=== PATIENT | male | born 1965 | race Caucasian/White ===

== ENCOUNTER 2016-08-11 19:23 | Emergency (ER) | payer OTHER ==
[~2016-08-11] VITALS: Ht 185.4 cm; Wt 145.4 kg
[~2016-08-11 19:23] MED LIST: AMMO385C5 TP; ASPI325T32 PO; CICL34.62 TP; CYCL10TA9 PO; FLUT16SP NS; GABA-502 PO; HYDR-4003 PO; KTC2C15 TP; LORA10TA7 PO; METF500T4 PO; VALS1TAB5 PO
[2016-08-11 19:37] VITALS: BP 134/80; PULSE 79; RESP 18; O2SAT 98
--- NOTE | 2016-08-11 19:48 | ED.REPORT ---
HPI-Headache Date of Service August 11, 2016 ED Provider: John Duke MD The patient is a 50 year old male with history of diabetes mellitus and hypertension, who was sent to the emergency department from urgent care for a headache. The patient has been sick with sinus congestion, fever, and chills, over the last 2 days. He suddenly developed a headache about 5.5 hours ago. The pain is located to his left forehead, eye, and cheek. His pain has been constant since onset. He has also experienced some nausea. He has had headaches in the past but the pain has never lasted this long or started so suddenly. He has tried Aleve and a hot shower with no improvement. He denies visual changes or vomiting. He smokes tobacco regularly. The patient states his mother from a brain aneurysm at age 55. Nursing Notes Stated Complaint: HEADACHE SENT FROM URGENT CARE Chief Complaint: Neuro Symptoms/ Deficits Nursing Notes Reviewed: Yes Allergies: Coded Allergies: simvastatin (Verified Allergy, Severe, MUSCLE ACHES, ABD. RASH, 08/03/15) Scheduled Aspirin (Aspirin) 325 Mg Tablet.dr 325 MG PO DAILY Fluticasone Propionate (Fluticasone Propionate Nasal) 16 Gm [place].susp 1 SPRAY NS BID Gabapentin (Gabapentin) 300 Mg Capsule 300 MG PO TID Loratadine (Loratadine) 10 Mg Tablet 10 MG PO DAILY Metformin (Metformin) 500 Mg Tablet 1,000 MG PO BIDWM Valsartan/Hydrochlorothiazide (Diovan Hct 160-12.5 mg Tab) 1 Each Tablet 1 EA PO DAILY Scheduled PRN Cyclobenzaprine (Cyclobenzaprine) 10 Mg Tablet 10 MG PO TID PRN PRN For Spasm Hydrocodone-Acetaminophen 5-325 mg (Hydrocodone-Acetaminophen 5-325 mg) 1 Each Tablet 1-2 TABLET PO Q4H PRN PRN For Pain Miscellaneous Medications Ammonium Lactate (Ammonium Lactate) 140 Gm Cream..g. 140 GM TP Ciclopirox/Ure/Camph/Menth/Euc (Ciclopirox 8% Treatment Kit) 34.6 Ml Solution 34.6 ML TP Ketoconazole (Ketoconazole) 15 Gm Cream..g. 15 GM TP General Time Seen by MD: 19:47 Chief Complaint Headache Hx Obtained From: Patient, Spouse Arrived By: Walk-in Sudden in Onset?: Yes Onset Occurred: 5 - 8 hours ago Symptom Duration: Since onset Location: : Frontal left: Frontal sinus (left): Retro orbital (left) Quality: Painful Severity: Current: Moderate Severity: Maximum: Severe Recent Healthcare: No recent hospitalization, Recent doctor visit Similar Sx Previous: No Past Medical History Past Medical History Reports: Diabetes mellitus, Hypertension Past Surgical History Rotator cuff/tendon repair Family History Noncontributory Smoking History Current Every Day Smoker Social History Other Social History: Good social support, , Local resident Ambulatory Status Independent Review of Systems Constitutional: Reports: Chills, Fever Ears / Nose / Throat: Reports: Nasal congestion, Sinus problem GI: Reports: Nausea, Denies: Vomiting Neurologic: Reports: Headache, Denies: Vision change Complete sys rev & neg: except as marked. Physical Exam Initial Vital Signs Vital Signs (First) Date Time Temp Pulse Resp B/P Pulse Ox O2 Delivery O2 Flow Rate FiO2 08/11/16 19:37 36.8 79 18 134/80 98 Room Air Initial VS: Reviewed Respiratory: Breath sounds normal, Clear to auscultation, No respiratory distress Cardiovascular: Regular rate & rhythm, Heart sounds normal, Intact distal pulses Abdomen / GI: Soft, Non-tender, No guarding, No rebound, No distention Lymphatic: No lymphadenopathy Extremities: Vascular intact, Neuro intact, No swelling, No tenderness Skin: Warm, Dry, No cyanosis Psychiatric: Mood/affect normal, Behavior normal, Normal thought content General/Constitutional: Awake, Alert, Cooperative Head / Eyes: Atraumatic, Normocephalic, PERRL, EOMI, No nystagmus, No photophobia, Conjunctiva NL, Temporal arteries NL Neck: Atraumatic, Supple, No meningismus, Full range of motion, No swelling, Non-tender, No midline vertebral tend, No masses Neurologic: Oriented X3, Speech NL, No motor deficits, No sensory deficits, Cerebellar NL, Memory NL ENT: Atraumatic, Airway patent, Mucous membranes moist, No sinus tenderness Interpretation & Diagnostics Interpretation & Diagnostics: SINUSES CT IMPRESSION: 1. Mucosal thickening in the left frontal and ethmoid air cells extending to the ostiomeatal complex. 2. Minimal mucosal thickening in further paranasal sinuses. 3. Marked anterior nasal septal deviation measuring 9 mm. Dictated by: Harmeet Barillas M.D. on 08/11/2016 at 20:53 Approved by: Harmeet Barillas M.D. on 08/11/2016 at 20:58 Lab Results Interpretation Result Diagram: 08/11/16202508/11/162025 Test 08/11/16 20:26 White Blood Count 8.5th/mm3 (3.8-10.1) Red Blood Count 5.58mil/mm3 (4.40-5.80) Hemoglobin 16.8g/dL (13.8-17.2) Hematocrit 49.0% (41.0-50.0) Mean Corpuscular Volume 87.8fL (81-100) Mean Corpuscular Hemoglobin 30.1pg (27.0-35.0) Mean Corpuscular Hemoglobin Concent 34.3% (32.0-37.0) Red Cell Distribution Width 14.3% (12.3-15.4) Platelet Count 170bil/L (150-400) Neutrophils (%) (Auto) 39.4% (40-74) Lymphocytes (%) (Auto) 42.4% (14-46) Monocytes (%) (Auto) 9.6% (4-12) Eosinophils (%) (Auto) 7.7% (0-5) Basophils (%) (Auto) 0.7% (0-3) Prothrombin Time 11.0sec (8.1-12.5) Prothromb Time International Ratio 1.03ratio Sodium Level 137mEq/L (134-144) Potassium Level 3.7mEq/L (3.5-5.2) Chloride Level 98mEq/L (97-108) Carbon Dioxide Level 26mmol/L (18-29) Blood Urea Nitrogen 16mg/dL (6-24) Creatinine 0.77mg/dL (0.76-1.27) Estimat Glomerular Filtration Rate 113mL/min (>59) Glucose Level 104mg/dL (60-99) Calcium Level 9.5mg/dL (8.5-10.1) Total Bilirubin 0.4mg/dL (0.0-1.2) Aspartate Amino Transf (AST/SGOT) 32U/L (0-50) Alanine Aminotransferase (ALT/SGPT) 38U/L (0-44) Alkaline Phosphatase 87U/L (25-150) Total Protein 7.7g/dL (6.4-8.4) Albumin 4.2g/dL (3.4-5.0) Hold Ghosh Top Tube Received (Received) CT Head Interpretation IMPRESSION: No CT evidence of acute intracranial pathology. Left maxillary sinus and ethmoid air show mucosal thickening. Dictated by: Harmeet Barillas M.D. on 08/11/2016 at 20:18 Study: Head CT no contrast Interpretation / Wet Read by: Interpret - Radiologist Procedures Lumbar Puncture Text / Dict Note: Lumbar puncture not successful. Plan to call radiologist. Time: 22:35 Procedure Performed by: ED physician Consent / Setup / Site Prep: Informed consent provided, Consent from patient , Hand hygiene observed, Stand sterile technique, Sterile drapes applied, Patient left lateral Skin Preparation Agent: Other (iodine) Re-Eval/Medical Decision Med Decision/Clinical Course Patient will be going to radiology for fluoroscopy guided lumbar puncture by . Source of Hx: Old records, Family Re-Evaluation/Progress #1: Time of Eval: 19:54 Re-Evaluation/Progress Note: Smoking cessation. Re-Evaluation/Progress #2: Time of Eval: 21:55 Re-Evaluation/Progress Note: Pt rechecked. Discussion with pt and about plan of treatment. Pt would like to continue with the lumbar puncture. Heunderstands and agrees with plan. Consultation : Call Returned at: 22:55 Product Management Internship: Agrees with eval, Agrees with plan Note: Case discussed with radiology. Counseled Regarding: Diagnosis, Lab results, Need for follow-up, When/why to return to ED Discharge & Departure Shift Change Sign-Out Patient Care Transferred: Yes Discussed Complaint(s): Yes Laboratory Evaluation: Ordered, not yet done Impression: Primary Impression: Headache Headache type: unspecified Headache chronicity pattern: unspecified pattern Intractability: not intractable Qualified Code: R51 - Headache Disposition: Home Discharge Condition All VS Reviewed: Yes Condition: Stable Referrals: Manuel Lui DO (PCP) Care Transferred to: [facility] Transferred at: 00:03 Heidyibsowmya Attestation Portions of this note were transcribed by Sharon Beyer. I, Dr. Duke personally performed the history, physical exam and medical decision-making; I reviewed and confirmed the accuracy of the information in the transcribed note. Signed by: Dot Sharp, 08/11/2016 at 2200. copies to: Manuel Lui Kirk H MD August 11, 2016 19:48 Sharon Beyer August 11, 2016 19:55 Kaylah Fishman August 11, 2016 21:33 Follow-up in a week if not improved. Referrals: Manuel Lui DO (PCP) Scribsowmya Attestation Portions of this note were transcribed by Sharon Beyer. I, Dr. Duke personally performed the history, physical exam and medical decision-making; I reviewed and confirmed the accuracy of the information in the transcribed note. Signed by: Dot Sharp, 08/11/2016 at 2200. copies to: Manuel Lui Kirk H MD August 11, 2016 19:48 Sharon Beyer August 11, 2016 19:55 Kaylah Fishman August 11, 2016 21:33
--- NOTE | 2016-08-11 20:28 | DRSVH ---
PROCEDURE: CT BRAIN WITHOUT CONTRAST ([id number]) INDICATIONS: headache TECHNIQUE: Noncontrast 4.5 mm thick angled axial sections acquired from the foramen magnum to the vertex, with c oronal reformats. COMPARISON: None. FINDINGS: Image quality: Excellent. CSF spaces: Basal cisterns are patent. No extra-axial fluid collections. Ventricles are normal in size and shape. Brain: No midline shift. No intracranial masses or hemorrhage. Elaine-white matter interface is norm al. Skull and face: Calvarium and visualized facial bones are intact, without suspicious lesions. Sinuses: Left maxillary sinus and ethmoid air cell mucosal thickening. Otherwise visualized sinuses a nd mastoids are clear. IMPRESSION: No CT evidence of acute intracranial pathology. Left maxillary sinus and ethmoid air show mucosal thickening. Dictated by: Harmeet Barillas M.D. on 08/11/2016 at 20:18 Approved by: Harmeet Barillas M.D. on 08/11/2016 at 20:20
[2016-08-11 20:32] LABS: BASOPHILS % (AUTO) 0.7 % (0-3); EOSINOPHILS % (AUTO) 7.7 % (0-5); MONOCYTES % (AUTO) 9.6 % (4-12); Mean Corpuscular Hemoglobin 30.1 pg (27.0-35.0); Mean Corpuscular Volume 87.8 fL (81-100); NEUTROPHILS % (AUTO) 39.4 % (40-74); Platelet Count 170 bil/L (150-400)
--- NOTE | 2016-08-11 21:05 | DRSVH ---
PROCEDURE: CT SINUSES ([id number]) INDICATIONS: headache TECHNIQUE: Noncontrast 3.0 mm axial images acquired from the frontal sinuses to the mid-sella, with coronal and sagittal reformats. COMPARISON: None. FINDINGS: Image quality: Excellent. Maxillary Sinuses: No bony remodeling or destruction. The right sinus is clear. There is left maxill suzan sinus mucosal thickening. Ethmoid Air Cells: No bony remodeling or destruction. Right-sided ethmoid air cells are clear. There is left-sided ethmoid air cell mucosal thickening.. Sphenoid Sinuses: No bony remodeling or destruction. Minimal mucosal thickening.. Frontal Sinuses: No bony remodeling or destruction. Minimal bilateral mucosal thickening inferiorly. Ostiomeatal Complexes: The right ostiomeatal complex is patent. There is mucosal thickening occluding the left osteomeatal complex. Miscellaneous: Visualized intra-orbital contents are normal. Prominent leftward deviation of the ant erior nasal septum measuring 9 mm. Anterior subluxation of the mandible at the TMJs is likely positi onal. IMPRESSION: 1. Mucosal thickening in the left frontal and ethmoid air cells extending to the ostiomeatal complex. 2. Minimal mucosal thickening in further paranasal sinuses. 3. Marked anterior nasal septal deviation measuring 9 mm. Dictated by: Harmeet Barillas M.D. on 08/11/2016 at 20:53 Approved by: Harmeet Barillas M.D. on 08/11/2016 at 20:58
[2016-08-11 21:28] VITALS: BP 123/73; PULSE 73; RESP 19; O2SAT 95
[2016-08-11 22:37] LABS: INR 1.03 ratio
[2016-08-11 23:05] VITALS: BP 114/53; PULSE 55; RESP 16; O2SAT 95
[2016-08-12 00:52] LABS: APPEARANCE,CSF HAZY (CLEAR); COLOR,CSF PINK (COLORLESS)
[2016-08-12 00:53] LABS: WHITE BLOOD CELL,CSF 0 /mm3 (0-5)
[2016-08-12 01:05] LABS: APPEARANCE,CSF HAZY (CLEAR); COLOR,CSF PINK (COLORLESS); WHITE BLOOD CELL,CSF 0 /mm3 (0-5)
[2016-08-12 01:38] VITALS: BP 127/96; PULSE 73; RESP 16; O2SAT 95
--- NOTE | 2016-08-12 13:21 | DRSVH ---
PROCEDURE: X-RAY LUMBAR PUNCTURE ([id number]) INDICATIONS: SAH INFECTION TECHNIQUE: The indications, alternatives, benefits, risks, and complications were explained to the patient. Shilpi bah informed consent was obtained and placed in the chart. The patient was placed in a prone positi on on the fluoroscopy table, and a level was chosen for percutaneous access under fluoroscopic guidan ce. The site was prepped and draped in a sterile fashion. After local anaesthetic, a spinal needle was then used to enter the intrathecal space, with return of cerebrospinal fluid. After obtaining sufficient fluid, the needle was then withdrawn, and a bandage applied to the punctur e site. FINDINGS: Puncture level: L4 interlaminar notch, by Dr. Barillas. Needle: Spinal needle. CSF volume: 4 separate aliquots provided to the clinical laboratory in separate containers for analys is at the discretion of the ordering of care provider. Medications: 1% lidocaine for anaesthesia. Complications: None. Laboratories: As ordered by referring clinician. IMPRESSION: Successful fluoroscopically guided lumbar puncture, performed by Dr. Barillas. Dictated by: Fletcher Santos M.D. on 08/12/2016 at 13:11 Approved by: Fletcher Santos M.D. on 08/12/2016 at 13:19
== END 2016-08-12 02:05 | disposition home or self-care (01) ==
LOC: SED 19:23
DX: R51 Headache (principal); R11.0 Nausea; E11.9 Type 2 diabetes mellitus without complications; I10 Essential (primary) hypertension; F17.200 Nicotine dependence, unspecified, uncomplicated; Z79.84 Long term (current) use of oral hypoglycemic drugs; Z79.82 Long term (current) use of aspirin; Z88.8 Allergy status to other drugs, medicaments and biological substances